=== PATIENT | male | born 1990 ===

== ENCOUNTER 2021-06-06 10:17 | Emergency (ER) | payer SELFPAY ==
[~2021-06-06] VITALS: Ht 172.7 cm; Wt 86.4 kg
[2021-06-06 10:26] VITALS: BP 166/114
== END 2021-06-06 10:40 | disposition left against medical advice (07) ==
LOC: EMS 10:17
DX: T40.2X1A Poisoning by other opioids, accidental (unintentional), initial encounter (principal); Y92.89 Other specified places as the place of occurrence of the external cause
CPT/HCPCS: 82962; 93005; 99283